=== PATIENT | male | born 2000 | race African-American/Black ===

== ENCOUNTER 2022-05-05 14:14 | Emergency (ER) | payer BC, SELFPAY ==
--- NOTE | ~2022-05-05 | XR_ITS ---
EXAMINATION: XR chest 2V DATE: 05/05/2022 15:30 INDICATION: Tingling and numbness in the arms and legs. Leg swelling. Congestive heart failure. TECHNIQUE: Frontal and lateral views of the chest were obtained on 3 radiographs. COMPARISON: None. FINDINGS: The chest demonstrates clear lungs without pneumonia, pleural effusion, or pneumothorax. Th e heart size is normal. IMPRESSION: 1. No acute cardiopulmonary disease. Reviewed, dictated and finalized at location B.
--- NOTE | ~2022-05-05 | US_ITS ---
EXAMINATION: US venous doppler [facility] DATE: 05/05/2022 15:55 INDICATION: Lower limb swelling. TECHNIQUE: Grayscale ultrasound images without and with compression and Doppler ultrasound images of the bilateral lower extremity veins were obtained. COMPARISON: None. FINDINGS: The visualized portions of right common femoral vein, profunda (deep) femoral vein, femoral vein, pop liteal vein, peroneal veins, posterior tibial veins, and greater saphenous vein outflow are patent. The visualized portions of left common femoral vein, profunda femoral vein, femoral vein, peroneal ve ins, posterior tibial veins, and greater saphenous vein outflow are patent. There is thrombus in left popliteal vein. IMPRESSION: 1. Deep vein thrombosis involving left popliteal vein. Reviewed, dictated and finalized at location B.
[2022-05-05 14:19] VITALS: BP 125/74; PULSE 86; RESP 16; TEMP 36.1; O2SAT 100
--- NOTE | 2022-05-05 15:16 | ECG_ITS ---
Measurements Intervals [place] Rate: 78 P: 69 MI: 175 QRS: 30 QRSD: 75 T: 30 QT: 343 QTc: 393 Interpretive Statements SINUS RHYTHM NORMAL ECG NO PREVIOUS ECG AVAILABLE FOR COMPARISON Electronically Signed On 05-05-2022 16:35:10 CDT by Jax Toledo M.D.
--- NOTE | 2022-05-05 15:35 | PC.NURSE ---
Pt not in room at this time and at imaging.
[2022-05-05 16:11] VITALS: BP 132/76; PULSE 80; RESP 18; O2SAT 100
[2022-05-05 16:14] LABS: Basophils Absolute Auto 0.1 K/mm3 (0.0-0.1); Basophils Percent Auto 0.9 % (0.2-1.2); Eosinophils Absolute Auto 0.2 K/mm3 (0-0.3); Eosinophils Percent Auto 3.1 % (0-4.4); Hematocrit 38.5 % (42.0-52.0); Hemoglobin 12.8 g/dL (14.0-18.0); Immature Granulocyte Absolute 0.02 K/mm3 (0.00-0.031); Immature Granulocyte Percent A 0.4 % (0-0.5); Lymphocytes Absolute Auto 2.55 K/mm3 (0.9-3.2); Lymphocytes Percent Auto 45.8 % (18.3-44.2); Mean Corpuscular HGB Conc 33.2 g/dl (32-36); Mean Corpuscular Hemoglobin 31.3 pg (26-34); Mean Corpuscular Volume 94.1 fl (80-100); Mean Platelet Volume 9.7 fl (7.4-10.4); Monocytes Absolute Auto 0.6 K/mm3 (0.1-0.6); Monocytes Percent Auto 10.8 % (2.6-8.5); Neutrophils Absolute Auto 2.2 K/mm3 (1.3-6.7); Platelet Count Result 190 k/mm3 (150-375); Red Blood Count 4.09 M/mm3 (4.6-6.20); Red Cell Distribution Width 13.3 % (11.5-14.5); White Blood Count 5.6 K/mm3 (4.5-10.0)
[2022-05-05 16:24] LABS: Alanine Aminotransferase 28 U/L (6-50); Alkaline Phosphatase 59 U/L (38-126); Anion Gap -1 mmol/L (8-16); Aspartate Amino Transferase 35 U/L (17-59); Bilirubin,Total 0.4 mg/dL (0.2-1.3); Blood Urea Nitrogen 19 mg/dL (9-20); Calcium 7.1 mg/dL (8.4-10.2); Carbon Dioxide 25 mmol/L (22-30); Chloride 104 mmol/L (98-107); Estimated CRCL calculation 86 ml/min; Estimated Glomerular Filt Rate > 60; Glucose 85 mg/dL (65-110); Potassium 3.7 mmol/L (3.4-5.0); Sodium 128 mmol/L (137-145)
[2022-05-05 16:33] LABS: NT Pro B Type Natriuretic Pept < 11 pg/mL (5-100)
[2022-05-05 16:46] LABS: Appearance Urine Clear (Clear); Bilirubin Urine Negative (Negative); Blood Urine Negative (Negative); Color Urine Yellow (Yellow); Glucose Urine UA Negative (Negative); Ketones Urine Negative (Negative); Leukocyte Esterase Ur Negative LEU/UL (Negative); Nitrate Urine Negative (Negative); Protein Urine Negative (Negative); Urobilinogen Urine 0.2 mg/dL (<2.0)
[2022-05-05 16:49] LABS: Add Urine Microscopic? NO
[2022-05-05 16:52] LABS: INR 0.9; Prothrombin Time 11.4 Seconds (11.1-14.7)
[2022-05-05 16:53] LABS: Partial Thromboplastin Time 30.6 SECONDS (22.3-36.8)
--- NOTE | 2022-05-05 16:54 | ED.LOWEXIN ---
HPI - Extremity Injury (Lower) General Chief Complaint: Extremity Injury, Lower Stated Complaint: lower left leg swelling Time Seen by Provider: 05/05/22 15:09 Source: patient and RN notes reviewed Mode of arrival: ambulatory Limitations: no limitations History of Present Illness HPI Narrative: This is a 21 year old male who presents for evaluation of leg swelling. Triage notes states patient is here for left leg swelling. Patient states both of his legs have been swollen for 3 days. He also reports bilateral leg pain for 3 days. He denies chest pain, sob, or orthopnea. He states he did drive to [place] this past weekend. He denies history of blood clots. Related Data Home Medications Medication Instructions Recorded Confirmed albuterol 90 mcg/actuation aerosol mcg inhalation 05/05/22 inhaler emtricitabine 120 mg-tenofovir tablet PO 05/05/22 alafenamide fumarate 15 mg tablet (Descovy) valacyclovir 1 gram tablet 1,000 mg PO DAILY 05/05/22 05/05/22 Allergies Allergy/AdvReac Type Severity Reaction Status Date / Time No Known Allergies Allergy Verified 05/05/22 14:15 Review of Systems Review of Systems: All systems reviewed & are unremarkable except as noted in HPI and below Constitutional: Constitutional: Denies chills, Denies fatigue and Denies fever(s) ENT: Denies nasal congestion and Denies sore throat Cardiovascular: Cardiovascular: Denies chest pain and Denies rapid heart rate Respiratory: Respiratory: Reports cough (chronic due to asthma) and Denies dyspnea Gastrointestinal: Gastrointestinal: Denies abdominal pain, Denies nausea and Denies vomiting Comments: denies melena PMFSH Past Medical History Medical History (Updated 05/05/22 @ 17:16 by Keri Hensley MD) Patient denies medical problems Surgical History Surgical History (Updated 05/05/22 @ 17:16 by Keri Hensley MD) No pertinent past surgical history Social History Social History (Updated 05/05/22 @ 17:16 by Keri Hensley MD) Smoking status: Never smoker Substance use type: marijuana Exam Const: General: no acute distress and alert Nutritional Appearance: thin Orientation/consciousness: patient oriented x3 Limitations: no limitations HENMT: Face and sinus: normal facial exam Mouth: Yes Normal oral and palatal mucosa present Teeth and gingiva: dentition normal Throat: posterior oropharynx normal Eyes: Pupils: Equal, round and reactive pupils present EOM: EOMs intact bilaterally Resp: Effort & Inspection: normal respiratory effort Auscultation: clear to auscultation bilaterally and breath sounds present Cardio: Rate: regular rate Rhythm: regular rhythm Heart sounds: no murmurs GI: GI Palp: Yes Soft to palpation, No Tenderness to palpation present (GI), No Guarding due to palpation present (GI) and No Rigid due to palpation Auscultation: normal bowel sounds Back/Spine/Pelvis: Back: no CVA tenderness Skin: General skin exam: normal color Rashes: no rashes Wounds: no wounds Neuro: General: patient oriented x3, moves all extremities and CN's II-XI intact bilaterally Extrem: Other: bilateral ankle edema Psych: Mental Status: mental status grossly normal Affect: normal affect Attitude: cooperative Course Reevaluation(s) Reevaluation #1: I have discussed with patient that labs shows low sodium and albumin. He states his diet consist of ramen noodles , ect. He doesn't seem to eat much with nutrients. He has been told before that his sodium is low. I discussed findings of DVT And treatment. He will follow up with new doctor. Date: 05/05/22 Time: 17:17 Consultations Consultation #1: Dr. Tejeda agrees to follow up with patient tomorrow. He is aware of labs and DVT. Date: 05/05/22 Time: 17:07 Vital Signs Vital signs: Vital Signs Temperature 97 F L 05/05/22 14:19 Pulse Rate 86 05/05/22 14:19 Respiratory Rate 16 05/05/22 14:19 Blood Pressure 125/74
[2022-05-05] MEDS: APIXABAN 5 MG TABLET 10 MG PO (17:29)
[2022-05-05 17:46] VITALS: BP 128/77; PULSE 82; RESP 18; O2SAT 100
== END 2022-05-05 17:48 | disposition home or self-care (01) ==
PROVIDERS: Emergency Provider General Practice
DX: I82.432 Acute embolism and thrombosis of left popliteal vein (principal); E87.1 Hypo-osmolality and hyponatremia
CPT/HCPCS: 36415; 71046; 80053; 81003; 83880; 85025; 85610; 85730; 93005; 93970; 99284; A9270